=== PATIENT | female | born 1990 | race Hispanic/Latino ===

== ENCOUNTER 2018-02-06 21:04 | Emergency (ER) | payer OTHER ==
[2018-02-06 21:16] VITALS: RESP 18; TEMP 98.3
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
[2018-02-06 23:27] VITALS: BP 141/83; PULSE 92; O2SAT 97
== END 2018-02-07 00:15 | disposition home or self-care (01) ==
LOC: H.ER 21:04
DX: F17.200 Nicotine dependence, unspecified, uncomplicated (principal)

== ENCOUNTER 2018-05-14 05:57 | Emergency (ER) | payer MEDICAID, OTHER ==
[2018-05-14 05:59] VITALS: BMI 23.8
--- NOTE | 2018-05-14 06:34 | ED PDOC ---
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 She states the pain is similar to her right hip pain when she had a flare up of her joint disease. Patient has been applying localized patches and taking tylenol with no relief of pain. She reports the pain is worsened with movement and activity. She denies any associated fever, chills, weakness, numbness or tingling in her lower extremities. She offers no other complaints. Past Medical History Reviewed: Historical Data, Nursing Documentation, Vital Signs Vital Signs: Last Vital Signs Temp 9 F L 05/14/18 09:52 Pulse 78 05/14/18 09:52 Resp 19 05/14/18 09:52 BP 128/76 05/14/18 09:52 Pulse Ox 98 05/14/18 09:52 - Medical History Other PMH: HLAB27 positive - Surgical History Surgical History: No Surg Hx - Family History Family History: States: No Known Family Hx - Social History Current smoker - smoking cessation education provided: Yes (5 ciagrettes per day ) Alcohol: None Drugs: Denies - Home Medications Home Medications: Ambulatory Orders Medication Instructions Recorded Naproxen [Naprosyn] 500 mg PO Q12H #20 tab 05/14/18 Non-Formulary 1 ea .ROUTE Q6 #1 ea 05/14/18 - Allergies Allergies/Adverse Reactions: Allergies Allergy/AdvReac Type Severity Reaction Status Date / Time No Known Allergies Allergy Verified 02/06/18 21:16 Review of Systems ROS Statement: Except As Marked, All Systems Reviewed And Found Negative Constitutional: Negative for: Fever, Chills Cardiovascular: Negative for: Chest Pain Respiratory: Negative for: Shortness of Breath Gastrointestinal: Negative for: Abdominal Pain Musculoskeletal: Positive for: Other (left hip pain) Neurological: Negative for: Weakness, Numbness Physical Exam - Reviewed Nursing Documentation Reviewed: Yes Vital Signs Reviewed: Yes - Physical Exam Appears: Positive for: Non-toxic, Uncomfortable Head Exam: Positive for: ATRAUMATIC, NORMAL INSPECTION, NORMOCEPHALIC Skin: Positive for: Normal Color Eye Exam: Positive for: Normal appearance Neck: Positive for: Supple Cardiovascular/Chest: Positive for: Regular Rate, Rhythm Respiratory: Positive for: Normal Breath Sounds Pulses-Dorsalis Pedis (L): 2+ Pulses-Dorsalis Pedis (R): 2+ Gastrointestinal/Abdominal: Positive for: Normal Exam, Soft Back: Positive for: Normal Inspection Extremity: Positive for: Tenderness (Localized tenderness to left buttock/hip area; no surrounding warmth or redness noted. + Tenderness with straight left leg raise at 30 degrees), Capillary Refill (< 2 seconds), Other (distal sensations intact). Negative for: Pedal Edema, Calf Tenderness, Deformity Neurologic/Psych: Positive for: Alert, Oriented. Negative for: Motor/Sensory Deficits - Laboratory Results Result Diagrams: 05/14/18 07:36 05/14/18 07:36 - ECG O2 Sat by Pulse Oximetry: 100 (RA) Pulse Ox Interpretation: Normal Medical Decision Making Medical Decision Making: Impression: Left hip pain in setting of known rheumatoid disease Plan: -- Labs -- Flexeril 10 mg PO -- Toradol 30mg IV -- Tradol 30mg IM Time: 0700 Patient signed out to Dr. Sharif pending labs, and re-evaluation. Scribe Attestation: Documented by Laurie Escalona, acting as a scribe for Jonathan De Souza MD. Provider Scribe Attestation: All medical record entries made by the Scribe were at my direction and personally dictated by me. I have reviewed the chart and agree that the record accurately reflects my personal performance of the history, physical exam, medical decision making, and the department course for this patient. I have also personally directed, reviewed, and agree with the discharge instructions and disposition. Disposition - Clinical Impression Clinical Impression: Hip pain - Patient ED Disposition Is Patient to be Admitted: Transfer of Care - Disposition Referrals: Santy Watkins MD [Staff Provider] - Disposition: Transfer of Care Disposition Time: 07:00 Condition: FAIR Prescriptions: Naproxen [Naprosyn] 500 mg PO Q12H #20 tab Non-Formulary 1 ea .ROUTE Q6 #1 ea Instructions: Hip Pain Forms: [facility] (Fijian) Patient Signed Over To: Isacc Sharif
--- NOTE | 2018-05-14 07:17 | ED PDOC ---
- Laboratory Results Result Diagrams: 05/14/18 07:36 05/14/18 07:36 - ECG O2 Sat by Pulse Oximetry: 100 (RA) Medical Decision Making Medical Decision Making: Time: 07:00 --Patient care endorsed to Dr. Sharif from Dr. De Souza pending labs and reevaluation. Disposition - Clinical Impression Clinical Impression: Hip pain - POA Present On Arrival: None - Disposition Referrals: Santy Watkins MD [Staff Provider] - Disposition: Routine/Home Disposition Time: 09:25 Condition: FAIR Prescriptions: Naproxen [Naprosyn] 500 mg PO Q12H #20 tab Instructions: Hip Pain Forms: [facility] (Moroccan)
[2018-05-14 07:52] LABS: BASO # 0.1 K/uL (0.0-0.2); BASO % 0.6 % (0.0-2.0); EOS # 0.2 K/uL (0.0-0.7); EOS % 2.1 % (0.0-4.0); HEMOGLOBIN 13.3 g/dL (12.0-16.0); LYMPH # 1.7 K/uL (1.0-4.3); LYMPH % 16.6 % (20.0-40.0); MEAN CELL VOLUME 96.9 fl (81.0-99.0); MEAN CORPUSCULAR HEMOGLOBIN 34.3 pg (27.0-31.0); MEAN CORPUSCULAR HGB CONC 35.4 g/dL (33.0-37.0); MEAN PLATELET VOLUME 8.8 fl (7.2-11.7); MONO # 1.2 K/uL (0.0-0.8); MONO % 11.8 % (0.0-10.0); NEUT # 7.1 K/uL (1.8-7.0); NEUT % 68.9 % (50.0-75.0); RBC 3.88 Mil/uL (3.80-5.20); RED CELL DISTRIBUTION WIDTH 13.5 % (11.5-14.5); WHITE BLOOD COUNT 10.3 K/uL (4.8-10.8)
[2018-05-14 08:00] LABS: ALB/GLOB RATIO 1.2 (1.0-2.1); ALBUMIN 4.1 g/dL (3.5-5.0); ALT/SGPT 40 U/L (9-52); AST/SGOT 48 U/L (14-36); BLOOD UREA NITROGEN 10 mg/dl (7-17); CALCIUM 9.5 mg/dL (8.4-10.2); GFR AFRICAN-AMERICAN > 60; GFR NON-AFRICAN AMERICAN > 60
[2018-05-14 08:31] VITALS: PULSE 78; RESP 19
[2018-05-14 09:52] VITALS: BP 128/76; TEMP 9
--- NOTE | 2018-05-14 13:05 | RAD ---
PROCEDURE: Left Hip X-ray Radiographs. HISTORY: Pain. No history of recent/ related trauma provided COMPARISON: None. FINDINGS: BONES: Normal. No fracture. JOINTS: Normal. SOFT TISSUES: Normal. OTHER FINDINGS: None. IMPRESSION: Normal left hip radiographs.
[2018-05-15 05:03] VITALS: O2SAT 100
== END 2018-05-14 09:53 | disposition home or self-care (01) ==
LOC: H.ER 05:57
DX: M25.552 Pain in left hip (principal); M06.9 Rheumatoid arthritis, unspecified
CPT/HCPCS: 73502; 80053; 81025; 85025; 85651; 96374; 99284; J1885